=== PATIENT | female | born 1985 | race African-American/Black ===

== ENCOUNTER 2018-11-20 12:56 | Emergency (ER) | payer MEDICAID, OTHER ==
[~2018-11-20] VITALS: Ht 165.1 cm; Wt 82.6 kg
[2018-11-20 14:27] LABS: Urine Bacteria FEW /hpf (None Seen); Urine Blood Negative /uL (Negative); Urine Specific Gravity 1.015 (1.001-1.035); Urine WBC 31 /hpf (0 - 5)
[2018-11-20 14:33] LABS: Alanine Aminotransferase 16 U/L (13-56); Albumin 2.6 g/dL (3.4-5.0); Anion Gap 9 (5-15); Aspartate Aminotransferase 9 U/L (15-37); BUN/Creatinine Ratio 14.8; Basophils # (auto) 0 uL; Basophils % (auto) 0.4 % (0.0-2.0); Blood Urea Nitrogen 12 mg/dL (7-18); Calcium 8.3 mg/dL (8.5-10.1); Carbon Dioxide 23 mmol/L (21-32); Chloride 110 mmol/L (98-107); Eosinophils # (auto) 0.1 uL; GFR African American 106 mL/min; GFR Non-African American 88 mL/min; Glucose 103 mg/dL (74-106); Hematocrit 35.4 % (36.0-46.0); Hemoglobin 11.5 g/dL (12.2-16.2); Lymphocytes # (auto) 1.9 uL; Mean Corpuscular Hemoglobin 27.1 pg (28.0-32.0); Mean Corpuscular Hgb Conc. 32.6 g/dL (32.0-36.0); Mean Corpuscular Volume 83.1 fL (80.0-100.0); Monocytes # (auto) 0.5 uL; Monocytes % (auto) 7.9 % (0.0-12.0); Neutrophils # (auto) 3.4 uL; Neutrophils % (auto) 57.7 % (37.0-80.0); Nucleated Red Blood Cells % 0.1 %; Platelet Count (auto) 186 10^3/uL (140-450); Potassium 3.9 mmol/L (3.5-5.1); Red Blood Cells 4.26 10^6/uL (4.0-5.20); Red Cell Distribution Width 15.1 % (11.8-14.3); Sodium 142 mmol/L (136-145); White Blood Cell 5.9 10^3/uL (4.4-10.8)
[2018-11-20 14:35] LABS: Alkaline Phosphatase 52 U/L (45-117); Bilirubin, Total 0.4 mg/dL (0.2-1.0); Total Protein 6.6 g/dL (6.4-8.2)
[2018-11-20 15:36] VITALS: BP 118/60
== END 2018-11-20 16:26 | disposition home or self-care (01) ==
LOC: ER 13:08
DX: O26.852 Spotting complicating pregnancy, second trimester (principal); O20.0 Threatened abortion; O23.42 Unspecified infection of urinary tract in pregnancy, second trimester; O34.12 Maternal care for benign tumor of corpus uteri, second trimester; Z3A.19 19 weeks gestation of pregnancy
CPT/HCPCS: 36415; 76805; 80053; 81001; 84702; 85025

== ENCOUNTER 2019-06-06 14:34 | Emergency (ER) | payer MEDICAID ==
[~2019-06-06] VITALS: Ht 167.6 cm; Wt 90.7 kg
[2019-06-06 15:31] LABS: Eosinophils # (auto) 0 uL; Eosinophils % (auto) 0.3 % (0.0-7.0); Hemoglobin 11.6 g/dL (12.2-16.2); Lymphocytes # (auto) 3.2 uL; Monocytes # (auto) 0.6 uL; Neutrophils # (auto) 3.2 uL; Nucleated Red Blood Cells % 0.1 %; White Blood Cell 7.1 10^3/uL (4.4-10.8)
[2019-06-06 15:33] LABS: Basophils # (auto) 0 uL; Basophils % (auto) 0.5 % (0.0-2.0); Hematocrit 36.8 % (36.0-46.0); Lymphocytes % (auto) 45.1 % (10.0-50.0); Mean Corpuscular Hemoglobin 26.2 pg (28.0-32.0); Mean Corpuscular Hgb Conc. 31.5 g/dL (32.0-36.0); Mean Corpuscular Volume 83.4 fL (80.0-100.0); Monocytes % (auto) 9.1 % (0.0-12.0); Platelet Count (auto) 297 10^3/uL (140-450); Red Blood Cells 4.41 10^6/uL (4.0-5.20); Red Cell Distribution Width 15.7 % (11.8-14.3)
[2019-06-06 15:44] LABS: Urine Bacteria FEW /hpf (None Seen); Urine Blood 1+ /uL (Negative); Urine Mucus FEW (None Seen); Urine Specific Gravity 1.014 (1.001-1.035); Urine WBC 6 /hpf (0 - 5)
[2019-06-06 15:45] LABS: INR 1.14 (0.9-1.15); Partial Thromboplastin Time 27.3 sec (23.64-32.05)
[2019-06-06] MEDS: SODIUM CHLORIDE 0.9% 1,000 ML IV ONE ×2 (16:18→16:56)
[2019-06-06] MEDS: ONDANSETRON HCL 4 MG/2 ML VIAL ONE (16:47)
[2019-06-06] MEDS: MORPHINE SULF INJ 2 MG/ML SYRINGE 1ML ONE (16:47)
[2019-06-06] MEDS: MORPHINE SULF INJ 2 MG/ML SYRINGE 1ML IV ONE (16:47)
[2019-06-06] MEDS: ONDANSETRON HCL 4 MG/2 ML VIAL IV ONE (16:48)
[2019-06-06 17:45] LABS: Calcium 8.4 mg/dL (8.5-10.1); Potassium 3.9 mmol/L (3.5-5.1)
[2019-06-06 17:49] LABS: Bilirubin, Total 0.9 mg/dL (0.2-1.0); Total Protein 6.5 g/dL (6.4-8.2)
[2019-06-06] MEDS: MORPHINE SULFATE 4 MG/ML SYR/VIAL IV ONE (18:49)
[2019-06-06] MEDS: cefTRIAXone 1GM/50ML D5W 50 ML IV ONE (19:41)
[2019-06-06 20:36] VITALS: BP 160/111
== END 2019-06-06 20:39 | disposition home or self-care (01) ==
LOC: ER 14:34
DX: N83.202 Unspecified ovarian cyst, left side (principal); J01.00 Acute maxillary sinusitis, unspecified; J45.909 Unspecified asthma, uncomplicated
CPT/HCPCS: 36415; 76856; 80053; 81001; 83605; 84702; 85025; 85610; 85730; 96365; 96375; 96376; 99284; J0696; J2270; J2405; J7030

== ENCOUNTER 2019-06-10 08:22 | Inpatient (IN) | payer MEDICAID ==
[~2019-06-10] VITALS: Ht 167.6 cm; Wt 92.0 kg
[2019-06-10] MEDS ORDERED: SODIUM CHLORIDE 0.9% 500 ML IVB ONE (08:53)
[2019-06-10] MEDS ORDERED: ONDANSETRON HCL 4 MG/2 ML VIAL IV ONE (09:00)
[2019-06-10] MEDS ORDERED: MORPHINE SULFATE 4 MG/ML SYR/VIAL IV ONE (09:00)
[2019-06-10 09:24] LABS: Basophils # (auto) 0 uL; Basophils % (auto) 0.4 % (0.0-2.0); Eosinophils # (auto) 0 uL; Eosinophils % (auto) 0.6 % (0.0-7.0); Hemoglobin 11.4 g/dL (12.2-16.2); Lymphocytes # (auto) 2.7 uL; Lymphocytes % (auto) 44.1 % (10.0-50.0); Mean Corpuscular Hemoglobin 26.3 pg (28.0-32.0); Mean Corpuscular Hgb Conc. 31.5 g/dL (32.0-36.0); Mean Corpuscular Volume 83.4 fL (80.0-100.0); Monocytes # (auto) 0.7 uL; Monocytes % (auto) 10.8 % (0.0-12.0); Neutrophils # (auto) 2.7 uL; Neutrophils % (auto) 44.1 % (37.0-80.0); Nucleated Red Blood Cells % 0.2 %; Platelet Count (auto) 269 10^3/uL (140-450); Red Blood Cells 4.32 10^6/uL (4.0-5.20); Red Cell Distribution Width 15.4 % (11.8-14.3); White Blood Cell 6.1 10^3/uL (4.4-10.8)
[2019-06-10 09:41] LABS: Albumin 2.8 g/dL (3.4-5.0); Calcium 8.4 mg/dL (8.5-10.1); Potassium 3.9 mmol/L (3.5-5.1)
[2019-06-10 09:44] LABS: BUN/Creatinine Ratio 13.8; Bilirubin, Total 0.6 mg/dL (0.2-1.0)
[2019-06-10] MEDS ORDERED: KETOROLAC TROMETH 15 mg/ml 1ML VL IV ONE (11:00)
[2019-06-10] MEDS ORDERED: ALBUTEROL SULF 2.5 MG/0.5ML(0.5%) NEB SOLN NEB PRN (16:15)
[2019-06-10] MEDS ORDERED: IPRATROPIUM BROM 0.5 MG/2.5ML INH SOL NEB PRN (16:15)
[2019-06-10] MEDS ORDERED: ACETAMINOPHEN 500 MG TAB PO PRN (16:15)
[2019-06-10] MEDS: SODIUM CHLORIDE 0.9% 1,000 ML IV SCH (16:37)
[2019-06-10] MEDS: LEVOFLOXACIN 500MG 100 ML IV SCH (16:55)
--- NOTE | 2019-06-10 19:28 | NUR ---
Opening Shift Note Assumed care of patient, awake and alert. No S/S of distress/SOB or pain. Pt is deaf and mute. Using pen and paper to communicate. Instructed on POC and to call for assist as needed. Pt is currently in bed with the rails up x2 and the bed is locked in the lowest position. Call light explained and placed within reach. Will continue to monitor.
[2019-06-10] MEDS ORDERED: ALBUAER3 IN (19:39)
--- NOTE | 2019-06-10 19:40 | NUR ---
RECEIVED PT TO FLOOR FROM ER AT 181. A/O X 4. PT IS DEAF, USES SIGN LANGUAGE AND WRITTEN TO COMMUNICATE. FAMILY AT BEDSIDE, OBTAINED HISTORY FROM PT MOTHER. REPORT PASSED ON TO ONCOMING NURSE.
[2019-06-10] MEDS: MORPHINE SULF INJ 2 MG/ML SYRINGE 1ML IV PRN (20:56)
[2019-06-10 21:07] VITALS: BP 143/104
[2019-06-10 22:00] VITALS: BP 128/99
[2019-06-11 05:00] VITALS: BP 136/77
[2019-06-11] MEDS: SODIUM CHLORIDE 0.9% 1,000 ML IV SCH ×2 (05:17→18:51)
[2019-06-11 06:27] LABS: Basophils # (auto) 0 uL; Basophils % (auto) 0.5 % (0.0-2.0); Eosinophils # (auto) 0.1 uL; Eosinophils % (auto) 2.3 % (0.0-7.0); Hematocrit 34.8 % (36.0-46.0); Hemoglobin 10.9 g/dL (12.2-16.2); Lymphocytes # (auto) 2.4 uL; Lymphocytes % (auto) 40.1 % (10.0-50.0); Mean Corpuscular Hemoglobin 26.1 pg (28.0-32.0); Mean Corpuscular Hgb Conc. 31.4 g/dL (32.0-36.0); Mean Corpuscular Volume 83.3 fL (80.0-100.0); Monocytes # (auto) 0.7 uL; Monocytes % (auto) 11.3 % (0.0-12.0); Neutrophils # (auto) 2.7 uL; Neutrophils % (auto) 45.8 % (37.0-80.0); Nucleated Red Blood Cells % 0.2 %; Platelet Count (auto) 252 10^3/uL (140-450); Red Blood Cells 4.18 10^6/uL (4.0-5.20); Red Cell Distribution Width 15.4 % (11.8-14.3); White Blood Cell 5.9 10^3/uL (4.4-10.8)
[2019-06-11 06:44] LABS: Potassium 4.5 mmol/L (3.5-5.1)
[2019-06-11 06:52] LABS: Albumin 2.5 g/dL (3.4-5.0); BUN/Creatinine Ratio 13.2; Bilirubin, Total 0.8 mg/dL (0.2-1.0); Calcium 8.1 mg/dL (8.5-10.1); Total Protein 5.5 g/dL (6.4-8.2)
--- NOTE | 2019-06-11 06:54 | NUR ---
Respiratory note: ROUTINE PRN TX CHECK. HR 92, RR 15, POX 94% ON RA, BREATH SOUNDS ARE CLEAR/DIMINISHED. NO SOB OR DISTRESS NOTED. PT WAS NOTIFY TO HAVE RT PAGE FOR MN TX.
[2019-06-11 09:00] VITALS: BP 126/87
[2019-06-11] MEDS: FAMOTIDINE 20 MG TAB PO SCH (09:50)
[2019-06-11] MEDS: LEVOFLOXACIN 500MG 100 ML IV SCH (09:50)
[2019-06-11] MEDS: ONDANSETRON HCL 4 MG/2 ML VIAL IV PRN (12:12)
[2019-06-11] MEDS: MORPHINE SULF INJ 2 MG/ML SYRINGE 1ML IV PRN ×3 (12:13→21:15)
[2019-06-11 13:00] VITALS: BP 133/93
[2019-06-11] MEDS: ALBUTEROL SULF 2.5 MG/0.5ML(0.5%) NEB SOLN NEB SCH ×3 (13:55→22:18)
[2019-06-11] MEDS: IPRATROPIUM BROM 0.5 MG/2.5ML INH SOL NEB SCH ×3 (13:55→22:18)
[2019-06-11 14:01] LABS: Urine Bacteria FEW /hpf (None Seen); Urine Blood TRACE /uL (Negative); Urine Mucus FEW (None Seen); Urine WBC 5 /hpf (0 - 5)
[2019-06-11 14:07] LABS: Alcohol, Urine < 3.0 mg/dL (0-5); Amphetamine Screen, Urine NEGATIVE (NEGATIVE); Barbiturate Scree,Urine NEGATIVE (NEGATIVE); Benzodiazephine Screen, Urine NEGATIVE (NEGATIVE); Cocaine Screen, Urine NEGATIVE (NEGATIVE); Phencyclidine Screen, Urine NEGATIVE (NEGATIVE)
[2019-06-11 14:16] LABS: Cannabinoid Screen, Urine POSITIVE (NEGATIVE); Opiate Scree,Urine POSITIVE (NEGATIVE)
[2019-06-11 17:00] VITALS: BP 137/89
--- NOTE | 2019-06-11 19:40 | NUR ---
Opening Shift Note Assumed care of patient, awake and alert. No S/S of distress/SOB or pain. Instructed on POC and to call for assist PRN. Bed in lowest locked position, call light within reach, side rails up x2. Will continue to monitor for changes Q1hr and PRN.
[2019-06-11 22:42] VITALS: BP 137/92
--- NOTE | 2019-06-12 02:45 | NUR ---
IV insertion IV access obtained, via clean sterile technique by inserting 22 gauge catheter at right wrist after 3 attempt(s). IV secured properly. No trauma to site. Patient tolerated well. NOTE: Previous IV removed, catheter intact, pressure dressing applied.
[2019-06-12 05:22] VITALS: BP 130/83
[2019-06-12 05:25] LABS: Basophils # (auto) 0 uL; Eosinophils # (auto) 0.1 uL; Hemoglobin 10.8 g/dL (12.2-16.2); Lymphocytes # (auto) 2.2 uL; Mean Corpuscular Hgb Conc. 32.1 g/dL (32.0-36.0); Monocytes # (auto) 0.5 uL; Nucleated Red Blood Cells % 0.1 %; Red Blood Cells 4.07 10^6/uL (4.0-5.20)
[2019-06-12 05:27] LABS: Basophils % (auto) 0.6 % (0.0-2.0); Eosinophils % (auto) 1.6 % (0.0-7.0); Hematocrit 33.5 % (36.0-46.0); Lymphocytes % (auto) 43.4 % (10.0-50.0); Mean Corpuscular Hemoglobin 26.4 pg (28.0-32.0); Mean Corpuscular Volume 82.4 fL (80.0-100.0); Neutrophils # (auto) 2.3 uL; Neutrophils % (auto) 44.4 % (37.0-80.0); Platelet Count (auto) 268 10^3/uL (140-450); Red Cell Distribution Width 15.2 % (11.8-14.3); White Blood Cell 5.1 10^3/uL (4.4-10.8)
[2019-06-12 05:42] LABS: INR 1.19 (0.9-1.15); Partial Thromboplastin Time 27.3 sec (23.64-32.05)
[2019-06-12 05:47] LABS: Albumin 2.5 g/dL (3.4-5.0); Calcium 8.2 mg/dL (8.5-10.1); Potassium 4.1 mmol/L (3.5-5.1)
[2019-06-12 05:50] LABS: BUN/Creatinine Ratio 12.3; Bilirubin, Total 0.7 mg/dL (0.2-1.0); Total Protein 5.6 g/dL (6.4-8.2)
[2019-06-12] MEDS: ALBUTEROL SULF 2.5 MG/0.5ML(0.5%) NEB SOLN NEB SCH ×5 (07:36→22:50)
[2019-06-12] MEDS: IPRATROPIUM BROM 0.5 MG/2.5ML INH SOL NEB SCH ×5 (07:36→22:50)
[2019-06-12 09:00] VITALS: BP 140/101
[2019-06-12] MEDS: FAMOTIDINE 20 MG TAB PO SCH ×2 (10:00→14:28)
[2019-06-12] MEDS: LEVOFLOXACIN 500MG 100 ML IV SCH (10:05)
[2019-06-12] MEDS: SODIUM CHLORIDE 0.9% 1,000 ML IV SCH (10:05)
[2019-06-12] MEDS: MORPHINE SULF INJ 2 MG/ML SYRINGE 1ML IV PRN ×2 (10:06→17:03)
--- NOTE | 2019-06-12 11:00 | NUR ---
PT. REFUSED MN. TX. AT THIS TIME. PT. IS FEELING SICK AT THIS TIME. FAMILY AT THE BEDSIDE ASKING PT. IF SHE WANTS HER TX., PT. IS DEAF AND SIGNING WITH FAMILY MEMBER, NO SHE DID NOT WANT IT AT THIS TIME. PT. IS AWARE SHE MAY CALL IF NEEDED, WILL SEE PT. AT NEXT SCHEDULED TIME.
[2019-06-12] MEDS: ONDANSETRON HCL 4 MG/2 ML VIAL IV PRN (11:29)
[2019-06-12 12:30] VITALS: BP 146/103
--- NOTE | 2019-06-12 14:44 | NUR ---
DR REA SAW PATIENT. NOTIFIED PT BP HAS BEEN RUNNING HIGH. SPOKE WITH PATIENT AND FAMILY USING JEWEL WAXER MONITOR WITH LIVE JEWEL WAXER. MD WENT OVER PLAN OF CARE WITH PT AND FAMILY, INCLUDING MOTHER. Addendum: 06/12/19 at 1905 by MARTY DOHERTY RN FLUIDS HELD.
[2019-06-12] MEDS ORDERED: hydrALAZINE HCL 20 MG/ML VL IV PRN (16:15)
[2019-06-12] MEDS ORDERED: SODIUM CHLORIDE 0.9% 1,000 ML IV SCH (16:30)
[2019-06-12 16:53] VITALS: BP 152/79
[2019-06-12] MEDS: HYDROcodone-ACET 5/325MG TAB PO PRN (17:13)
[2019-06-12] MEDS ORDERED: LISINOPRIL 20 MG TAB PO ONE (19:15)
[2019-06-12 22:00] VITALS: BP 135/89
[2019-06-12] MEDS: METOPROLOL TARTRATE 50 MG TAB PO SCH (23:24)
[2019-06-13 05:00] VITALS: BP 138/86
[2019-06-13] MEDS: IPRATROPIUM BROM 0.5 MG/2.5ML INH SOL NEB SCH ×3 (06:18→22:00)
[2019-06-13] MEDS: ALBUTEROL SULF 2.5 MG/0.5ML(0.5%) NEB SOLN NEB SCH ×3 (06:18→22:00)
--- NOTE | 2019-06-13 06:18 | NUR ---
PT. REFUSED MN. TX. AT THIS AM. , NO RESP. DISTRESS OR SOB NOTED. BS. ARE CLEAR AND DIMINISHED BILAT. , HR=82,RR=16.ZM51=781% ON 2LPM NC., WILL SEE PT. AT NEXT SCHEDULED TIME.
[2019-06-13 07:04] LABS: Albumin 2.7 g/dL (3.4-5.0); BUN/Creatinine Ratio 10.2; Calcium 8.3 mg/dL (8.5-10.1); Potassium 4.3 mmol/L (3.5-5.1)
[2019-06-13 07:07] LABS: Total Protein 5.7 g/dL (6.4-8.2)
[2019-06-13 09:00] VITALS: BP 124/88
[2019-06-13] MEDS: LEVOFLOXACIN 500MG 100 ML IV SCH (09:19)
[2019-06-13] MEDS: METOPROLOL TARTRATE 50 MG TAB PO SCH ×2 (09:21→21:25)
[2019-06-13] MEDS: HYDROcodone-ACET 5/325MG TAB PO PRN ×2 (09:22→18:56)
[2019-06-13] MEDS: FAMOTIDINE 20 MG TAB PO SCH (09:23)
[2019-06-13] MEDS: LISINOPRIL 20 MG TAB PO SCH (09:23)
--- NOTE | 2019-06-13 10:07 | NUR ---
PT. REFUSED MN. TX. AT THIS TIME. FAMILY IN THE ROOM AT THIS TIME. PT. STATES SHE WILL TAKE TX. LATER. NO RESP. DISTRESS OR SOB NOTED AT THIS TIME. NO TX. , GIVEN.
--- NOTE | 2019-06-13 11:59 | NUR ---
Nutrition Assessment Notes Please refer to link for full assessment notes Est energy needs: 9587-8135 kcals (17/20 kcal/kgBW) Est protein needs: 54-68 gms/day (0.8-1.0 gm/kgAdjBW) Will continue to reassess prn Addendum: 06/13/19 at [address] Amended: Links added.
[2019-06-13 12:30] VITALS: BP 137/84
--- NOTE | 2019-06-13 13:04 | NUR ---
DR DIAZ SAW PATIENT AND DISCUSSED PLAN OF CARE WITH PATIENT USING LIVE CRYSTAL FLAT GRINDER ON MONITOR. REQUESTED STOOL SOFTENER. PT AWARE MD IS WAITING FOR SURGEON TO CONSULT. NOTIFIED DR DIAZ OF MALNUTRITION PER DIETARY.
[2019-06-13] MEDS ORDERED: LACTULOSE 20Gm/30ML SOLN PO ONE (13:30)
[2019-06-13] MEDS ORDERED: DOCUSATE SOD 100 MG CAP PO ONE (13:30)
[2019-06-13] MEDS: metroNIDAZOLE 500MG/100ML 100 ML IV SCH ×2 (14:21→21:24)
--- NOTE | 2019-06-13 14:35 | NUR ---
PT. REFUSED MN. TX. AGAIN. PT. STATES SHE DOES NOT NEED IT. NO RESP. DISTRESS OR SOB NOTED. HR=88,RR=16,SP02=95% ON RA. NO TX. GIVEN, WILL SEE PT. AT NEXT SCHEDULED TIME.
[2019-06-13 17:00] VITALS: BP 143/92
--- NOTE | 2019-06-13 18:25 | NUR ---
SURGICAL CONSULT DR AUGUSTINE SAW PATIENT. REPORTS NO SURGERY AT THIS TIME DUE TO THE RISKS, THAT HE WILL CONTINUE TO MONITOR PATIENT. DR LUBIN SAW PATIENT AND SHE REPORTS PT IS CLEAR FOR DISCHARGE FROM [facility] BUT TO HAVE PT FOLLOW UP WITH HER OUTPATIENT.
[2019-06-13] MEDS: ONDANSETRON HCL 4 MG/2 ML VIAL IV PRN (18:56)
--- NOTE | 2019-06-13 20:00 | NUR ---
PATIENT DEAF/MUTE FAMILY MEMBERS AT BEDSIDE TRANSLATING FOR RN, PATIENT REQUESTING FOR COUGH MEDICINE BECAUSE PAIN IS INCREASING ON HER ABDOMEN WHEN SHE STARTS COUGHING. MADE AWARE WILL PAGE HOSPITALIST. POC REVIEWED WITH PATIENT AND FAMILY.
[2019-06-13] MEDS: MORPHINE SULF INJ 2 MG/ML SYRINGE 1ML IV PRN (20:13)
--- NOTE | 2019-06-13 20:29 | NUR ---
paged hospitalist for cough med. awaiting callback.
[2019-06-13 22:04] VITALS: BP 133/87
[2019-06-13] MEDS ORDERED: guaiFENesin-DM 100/10mg/5ml SYR PO PRN (22:45)
[2019-06-13 23:52] LABS: Urine Bacteria NONE SEEN /hpf (None Seen); Urine Blood TRACE /uL (Negative); Urine Mucus FEW (None Seen); Urine Specific Gravity 1.014 (1.001-1.035); Urine WBC 6 /hpf (0 - 5)
[2019-06-14 00:12] LABS: Protein, Urine 174.6 mg/dL (0.0-11.9)
[2019-06-14] MEDS: MORPHINE SULF INJ 2 MG/ML SYRINGE 1ML IV PRN ×4 (00:17→21:23)
[2019-06-14] MEDS: ALBUTEROL SULF 2.5 MG/0.5ML(0.5%) NEB SOLN NEB SCH ×4 (00:26→14:43)
[2019-06-14] MEDS: IPRATROPIUM BROM 0.5 MG/2.5ML INH SOL NEB SCH ×4 (00:26→14:43)
[2019-06-14] MEDS: ONDANSETRON HCL 4 MG/2 ML VIAL IV PRN ×4 (01:09→21:21)
[2019-06-14] MEDS: HYDROcodone-ACET 5/325MG TAB PO PRN (01:09)
[2019-06-14 04:49] VITALS: BP 111/72
--- NOTE | 2019-06-14 05:46 | NUR ---
PATIENT VOMITED 100ML, AND IS STILL NAUSEATED, PAGED HOSPITALIST, AWAITING CALLBACK. INSTRUCTED PATIENT NOT TO DRINK OR EAT ANYTHING AT THIS TIME, KEPT HEAD ELEVATED TO PREVENT ASPIRATION.
[2019-06-14 05:53] LABS: Eosinophils # (auto) 0 uL; Eosinophils % (auto) 0.2 % (0.0-7.0); Hemoglobin 10.5 g/dL (12.2-16.2); Neutrophils # (auto) 3.3 uL; Nucleated Red Blood Cells % 0.2 %; White Blood Cell 5.6 10^3/uL (4.4-10.8)
[2019-06-14 05:54] LABS: Basophils # (auto) 0 uL; Basophils % (auto) 0.7 % (0.0-2.0); Hematocrit 33.3 % (36.0-46.0); Lymphocytes # (auto) 1.7 uL; Lymphocytes % (auto) 29.9 % (10.0-50.0); Mean Corpuscular Hemoglobin 25.9 pg (28.0-32.0); Mean Corpuscular Hgb Conc. 31.6 g/dL (32.0-36.0); Monocytes # (auto) 0.5 uL; Monocytes % (auto) 9.6 % (0.0-12.0); Neutrophils % (auto) 59.6 % (37.0-80.0); Platelet Count (auto) 247 10^3/uL (140-450); Red Blood Cells 4.06 10^6/uL (4.0-5.20); Red Cell Distribution Width 15.8 % (11.8-14.3)
[2019-06-14] MEDS: metroNIDAZOLE 500MG/100ML 100 ML IV SCH ×3 (06:14→21:21)
[2019-06-14] MEDS ORDERED: ONDANSETRON HCL 4 MG/2 ML VIAL IV ONE (06:15)
[2019-06-14 06:17] LABS: Albumin 2.4 g/dL (3.4-5.0); Calcium 8.1 mg/dL (8.5-10.1)
[2019-06-14 06:21] LABS: BUN/Creatinine Ratio 11.2; Bilirubin, Total 1.3 mg/dL (0.2-1.0); Total Protein 5.3 g/dL (6.4-8.2)
[2019-06-14 08:00] VITALS: BP 111/72
--- NOTE | 2019-06-14 08:00 | NUR ---
OPENING SHIFT NOTE ASSUMED CARE OF PATIENT AWAKE AND ALERT. NO S/S OF DISTRESS NOTED OR COMPLAINTS OF PAIN. PT UPDATED ON POC FOR THE DAY VIA PAPER AND PEN. ALL QUESTIONS ANSWERED. BED IS IN LOWEST, LOCKED POSITION, SIDE RAILS UP X2 AND CALL LIGHT WITHIN REACH. WILL CONTINUE TO MONITOR Q1H AND PRN.
[2019-06-14 09:00] VITALS: BP 135/83
[2019-06-14] MEDS: LEVOFLOXACIN 500MG 100 ML IV SCH (10:04)
[2019-06-14] MEDS: METOPROLOL TARTRATE 50 MG TAB PO SCH ×2 (10:04→21:23)
[2019-06-14] MEDS: LISINOPRIL 20 MG TAB PO SCH (10:05)
[2019-06-14] MEDS: FAMOTIDINE 20 MG TAB PO SCH (10:05)
[2019-06-14 13:00] VITALS: BP 123/84
--- NOTE | 2019-06-14 15:36 | NUR ---
ROUNDS Dr Donnelly at bedside for rounds, new orders received and followed through. Patient and mother at bedside updated on plan of care, mother translated by sign language, verbalized understanding.
[2019-06-14 15:48] LABS: Basophils # (auto) 0 uL; Lymphocytes # (auto) 2.1 uL; Monocytes # (auto) 0.6 uL; Nucleated Red Blood Cells % 0.2 %; White Blood Cell 5.6 10^3/uL (4.4-10.8)
[2019-06-14 15:50] LABS: Basophils % (auto) 0.9 % (0.0-2.0); Eosinophils # (auto) 0.1 uL; Hematocrit 33.8 % (36.0-46.0); Hemoglobin 11.1 g/dL (12.2-16.2); Lymphocytes % (auto) 37.4 % (10.0-50.0); Mean Corpuscular Hemoglobin 26.9 pg (28.0-32.0); Mean Corpuscular Hgb Conc. 32.8 g/dL (32.0-36.0); Monocytes % (auto) 9.9 % (0.0-12.0); Neutrophils # (auto) 2.8 uL; Neutrophils % (auto) 50.8 % (37.0-80.0); Platelet Count (auto) 273 10^3/uL (140-450); Red Blood Cells 4.13 10^6/uL (4.0-5.20); Red Cell Distribution Width 15.8 % (11.8-14.3)
[2019-06-14 16:05] LABS: Albumin 2.3 g/dL (3.4-5.0); Calcium 8.1 mg/dL (8.5-10.1); Potassium 4.4 mmol/L (3.5-5.1)
[2019-06-14 16:08] LABS: BUN/Creatinine Ratio 11.9; Total Protein 5.1 g/dL (6.4-8.2)
--- NOTE | 2019-06-14 16:26 | NUR ---
I received a page from Nurse Gomez letting me know that there is a new order to transfer to higher level of care for high risk gallbladder surgery. I requested that nurse Gomez fax the transfer order along with clinical information to [facility] (phone [phone] option 3----fax number [phone]). I called [facility] Director Wholesale Hayley Shipleycon [phone] and left a message letting her know that there was a transfer order on this patient-asking for authorization for facility as well as transportation. I let nurse Gomez know that when she faxes packet to [facility] they will call her back asking for cell phone number-Patricia to get phone number from Dr. Donnelly.
--- NOTE | 2019-06-14 16:32 | NUR ---
FAX FAXED INFORMATION TO [facility] PER HISTOLOGICAL ILLUSTRATOR'S REQUEST
[2019-06-14 16:43] VITALS: BP 129/76
--- NOTE | 2019-06-14 16:46 | NUR ---
I received a call from [facility] Medical Education Specialist Hayley Seo letting me know that the authorization for [facility] is [id number]. She said we can also reach out to [facility], [facility], [facility], [facility] and [facility]. Per Hayley she will not provide [facility] authorization number until she knows the accepting facility.
--- NOTE | 2019-06-14 16:50 | NUR ---
I called [facility] [phone] and left message with oracle data warehouse developer asking about their bed availability.
[2019-06-14] MEDS ORDERED: NITROGLYCERIN 0.4 MG SL TAB SL PRN ×2 (17:00)
[2019-06-14] MEDS ORDERED: MORPHINE SULF INJ 2 MG/ML SYRINGE 1ML IV PRN ×2 (17:00)
[2019-06-14] MEDS ORDERED: FUROSEMIDE 20 MG/2 ML VIAL IV ONE (17:30)
--- NOTE | 2019-06-14 18:36 | NUR ---
[facility] RECEIVED CALL FROM [facility] REGARDING PATIENT'S TRANSFER STATUS. FACILITY IS NOT CURRENTLY ACCEPTING MEDICAL TRANSFER CASES BUT WILL PUT HER UNDER SURGICAL SERVICES. PROVIDED THEM WITH THE PHONE NUMBER AND NAME OF THE [facility] DRY CLEANER AND THE AUTH NUMBER. THEY WILL CALL BACK AND LET US KNOW WHEN A BED IS AVAILABLE.
--- NOTE | 2019-06-14 21:05 | NUR ---
Received patient from Isabel KERNS Patient is in bed complaining of pain. Pain medications are due at 21:22. Patient is aware. Call light is within reach, will continue to monitor.
--- NOTE | 2019-06-14 21:10 | NUR ---
Endorsed care to Lorraine KERNS. Patient is resting in bed. Fall and safety precautions in place. Call light within reach.
[2019-06-14] MEDS: SODIUM CHLOR 0.9% PF (SALINE LOCK) 10ML VIAL/SYR IV SCH (21:23)
[2019-06-14 22:00] VITALS: BP 126/61
--- NOTE | 2019-06-14 22:25 | NUR ---
Dr. Campbell at bedside. He wants to do a MRCP to further assess the gallbladder and says it will happen on sunday. Patient is aware, all questions answered. New orders received for CMP in the am. Will carry out and continue to monitor the patient.
--- NOTE | 2019-06-14 22:35 | NUR ---
Called patient's mother, password provided, and updated her on current plan of care. All questions and concerns answered. She stated she will be here tomorrow, she wants to speak with Dr. Campbell.
--- NOTE | 2019-06-14 22:41 | NUR ---
NEW PASSWORD New password is [id number], the patient's mother changed it. The patient is aware and expressed understanding.
--- NOTE | 2019-06-14 23:45 | NUR ---
Episode of nausea, patient vomited 40mL of clear liquid. No nausea medications due. Patient stated she felt better after getting sick.
[2019-06-15] MEDS: ONDANSETRON HCL 4 MG/2 ML VIAL IV PRN ×4 (01:21→19:59)
[2019-06-15] MEDS: MORPHINE SULF INJ 2 MG/ML SYRINGE 1ML IV PRN ×4 (01:21→19:58)
[2019-06-15 05:00] VITALS: BP 130/68
[2019-06-15 05:45] LABS: Albumin 2.3 g/dL (3.4-5.0); Calcium 7.9 mg/dL (8.5-10.1); Potassium 3.5 mmol/L (3.5-5.1)
[2019-06-15 05:49] LABS: BUN/Creatinine Ratio 10.7; Bilirubin, Total 0.8 mg/dL (0.2-1.0); Total Protein 5.1 g/dL (6.4-8.2)
[2019-06-15] MEDS: SODIUM CHLOR 0.9% PF (SALINE LOCK) 10ML VIAL/SYR IV SCH ×3 (06:03→22:18)
[2019-06-15] MEDS: metroNIDAZOLE 500MG/100ML 100 ML IV SCH ×3 (06:03→22:18)
--- NOTE | 2019-06-15 07:30 | NUR ---
Opening Shift Note Assumed care of patient, awake and alert. PT IS DEAF/MUTE. No S/S of distress/SOB or pain. Instructed on POC and to call for assist PRN, will continue to monitor for changes Q1hr and PRN. USED VIDEO ADJUSTMENT CLERK AT BEDSIDE.
[2019-06-15 08:00] VITALS: BP 132/90
[2019-06-15] MEDS: LEVOFLOXACIN 500MG 100 ML IV SCH (09:35)
[2019-06-15] MEDS: METOPROLOL TARTRATE 50 MG TAB PO SCH (09:35)
[2019-06-15] MEDS: FAMOTIDINE 20 MG TAB PO SCH (09:35)
[2019-06-15] MEDS: LISINOPRIL 20 MG TAB PO SCH ×2 (09:36→10:00)
[2019-06-15] MEDS ORDERED: ENOXAPARIN SOD 40 MG/0.4 ML SYRINGE SC ONE (10:15)
[2019-06-15] MEDS ORDERED: FAMOTIDINE (10MG/ML) 2ML VL IV ONE (10:15)
[2019-06-15 10:58] LABS: Albumin 2.6 g/dL (3.4-5.0); Calcium 8.3 mg/dL (8.5-10.1); Potassium 3.7 mmol/L (3.5-5.1)
[2019-06-15 11:02] LABS: BUN/Creatinine Ratio 9.9; Bilirubin, Total 0.8 mg/dL (0.2-1.0); Total Protein 5.6 g/dL (6.4-8.2)
--- NOTE | 2019-06-15 11:30 | NUR ---
PT PROVIDED WITH INCENTIVE SPIROMETER AND DEMONSTRATED/EXPLAINED PROPER USAGE USING THE VIDEO REVERBERATORY SKIMMER. PT RETURNED DEMONSTRATION. VERBALIZED UNDERSTANDING. Addendum: 06/15/19 at 1838 by Adali Hastings RN PT WAS ALSO ENCOURAGED TO GET OUT OF BED AND TO AMBULATE.
[2019-06-15 12:00] VITALS: BP 134/83
--- NOTE | 2019-06-15 15:00 | NUR ---
FAMILY AT BEDSIDE.
--- NOTE | 2019-06-15 16:00 | NUR ---
PT AMBULATED AROUND THE UNIT WITH FAMILY AT BEDSIDE. GAIT STEADY. TOLERATED WELL.
--- NOTE | 2019-06-15 16:55 | NUR ---
IV removal IV ON LEFT WRIST DC'd with clean sterile technique, catheter fully intact. Pressure dressing applied to site. Patient tolerated well. NOTE:
[2019-06-15 16:56] VITALS: BP 147/91
--- NOTE | 2019-06-15 17:03 | NUR ---
IV insertion IV access obtained, via clean sterile technique by inserting 20 gauge catheter at RIGHT FA after 1 attempt(s). IV secured properly. No trauma to site. Patient tolerated well. NOTE:
--- NOTE | 2019-06-15 18:39 | NUR ---
CLOSING NOTES PT RESTING IN BED. FAMILY AT BEDSIDE. PT HAD SEVERAL EPISODES OF VOMITING TODAY AND WAS GIVEN ZOFRAN WHICH HELPED CONTROL IT. PT HASN'T REPORTED ANY EPISODE OF VOMITING AT THIS TIME.
[2019-06-15] MEDS ORDERED: PPN PER PHARMACY 0 ML IV SCH (19:00)
[2019-06-15] MEDS ORDERED: guaiFENesin-DM 100/10mg/5ml SYR PO ONE (19:00)
[2019-06-15] MEDS ORDERED: guaiFENesin-DM 100/10mg/5ml SYR PO PRN (19:00)
[2019-06-15] MEDS ORDERED: FUROSEMIDE 40 MG/4 ML VIAL IV ONE (19:00)
[2019-06-15] MEDS ORDERED: DEXTROSE (50%) 50ML SYRG IV SCH (19:30)
--- NOTE | 2019-06-15 19:35 | NUR ---
Opening Shift Note Assumed care of patient, awake and alert x4. No S/S of distress/SOB or pain. Call light is within reach, side rails up x2, bed is in lowest position. Instructed on POC and to call for assist PRN, will continue to monitor for changes Q1hr and PRN.
[2019-06-15] MEDS: AMINO ACID INFUSION IN D5W 1,000 ML IV NR (19:57)
[2019-06-15 22:00] VITALS: BP 149/99
[2019-06-15] MEDS: InsuLIN REG 1unit/0.01ml Soln (100units/ml) SC SCH (23:38)
[2019-06-15] MEDS: ACCU-CHEK COMFORT CURVE STRIP VI SCH (23:39)
[2019-06-16] MEDS: ONDANSETRON HCL 4 MG/2 ML VIAL IV PRN ×2 (02:15→08:28)
[2019-06-16 05:42] VITALS: BP 138/93
[2019-06-16] MEDS: InsuLIN REG 1unit/0.01ml Soln (100units/ml) SC SCH ×3 (06:00→18:00)
[2019-06-16] MEDS: SODIUM CHLOR 0.9% PF (SALINE LOCK) 10ML VIAL/SYR IV SCH ×3 (06:02→22:22)
[2019-06-16] MEDS: metroNIDAZOLE 500MG/100ML 100 ML IV SCH ×3 (06:02→22:22)
[2019-06-16] MEDS: ACCU-CHEK COMFORT CURVE STRIP VI SCH ×4 (06:03→23:43)
[2019-06-16 06:05] LABS: Basophils # (auto) 0 uL; Eosinophils # (auto) 0.1 uL; Hemoglobin 10.9 g/dL (12.2-16.2); Monocytes # (auto) 0.7 uL; Nucleated Red Blood Cells % 0.1 %
[2019-06-16 06:08] LABS: Basophils % (auto) 0.7 % (0.0-2.0); Eosinophils % (auto) 1.8 % (0.0-7.0); Hematocrit 33.5 % (36.0-46.0); Lymphocytes # (auto) 1.7 uL; Lymphocytes % (auto) 37.2 % (10.0-50.0); Mean Corpuscular Hemoglobin 26.2 pg (28.0-32.0); Mean Corpuscular Hgb Conc. 32.7 g/dL (32.0-36.0); Mean Corpuscular Volume 80.2 fL (80.0-100.0); Monocytes % (auto) 14.5 % (0.0-12.0); Neutrophils # (auto) 2.1 uL; Neutrophils % (auto) 45.8 % (37.0-80.0); Platelet Count (auto) 212 10^3/uL (140-450); Red Blood Cells 4.18 10^6/uL (4.0-5.20); Red Cell Distribution Width 16.1 % (11.8-14.3); White Blood Cell 4.6 10^3/uL (4.4-10.8)
[2019-06-16 06:29] LABS: Potassium 3.4 mmol/L (3.5-5.1)
[2019-06-16 06:38] LABS: Albumin 2.5 g/dL (3.4-5.0); BUN/Creatinine Ratio 9.1; Bilirubin, Total 0.9 mg/dL (0.2-1.0); Calcium 8.1 mg/dL (8.5-10.1); Magnesium 1.5 mg/dL (1.6-2.6); Phosphorus 4.1 mg/dL (2.5-4.90); Pre Albumin 14.1 mg/dL (20.0-40.0); Total Protein 5.3 g/dL (6.4-8.2)
--- NOTE | 2019-06-16 07:30 | NUR ---
OPENING SHIFT NOTE: Received report from NOC RNDionna. Assumed care of patient. Patient sleeping quietly in bed, no signs or symptoms of pain at this time. Bed in lowest position, rails x2 up and call light within reach. Updated on plan of care. Will continue to monitor.
[2019-06-16 08:00] VITALS: BP 138/91
[2019-06-16] MEDS: MORPHINE SULF INJ 2 MG/ML SYRINGE 1ML IV PRN ×2 (08:29→22:16)
[2019-06-16] MEDS: LISINOPRIL 20 MG TAB PO SCH (09:55)
[2019-06-16] MEDS: LEVOFLOXACIN 500MG 100 ML IV SCH (09:55)
[2019-06-16] MEDS ORDERED: ENOXAPARIN SOD 40 MG/0.4 ML SYRINGE SC SCH (10:00)
[2019-06-16] MEDS ORDERED: FAMOTIDINE (10MG/ML) 2ML VL IV SCH (10:00)
--- NOTE | 2019-06-16 10:58 | NUR ---
MRCP/MRI: Patient IV saline flushed. Patient taken for MRCP/MRI via wheelchair.
[2019-06-16] MEDS ORDERED: PANTOPRAZOLE 40 MG/10 ML VIAL INJ IV ONE (11:30)
[2019-06-16] MEDS: POTASSIUM CHL 20MEQ/100ML 100 ML IV SCH ×2 (11:45→12:55)
--- NOTE | 2019-06-16 11:51 | NUR ---
Nutrition Consult and Follow-up Notes Wt.: 94.1 kg as of yesterday. Pt's deaf mute, communicate via pen and paper, denies discomfort except for nausea and mild abdominal pain during rounds earlier. Pt's currently NPO with Clinimix @ 42 ml/hr providing 255 kcal, 42.5 gms pro and 85 NPCs. Pt with inadequate PN support d/t low initiation rate delivery of diluted formula aeb current PN infusion meets 13% to 16% of est caloric needs and 51% to 60% of est protein needs. Discussed importance/benefits of PN support while remains NPO r/t current medical condition and she acknowledged with understanding. Noted pt's to receive tonight TPN @ 53 ml/hr to provide 748 kcal, 50 gms pro, 508 NPCs and 13% Fat with active GI and Surgical consult. Est. Needs : 9420-4397 kcals (17-20 kcal/kgBW), 71-83 gms pro (1.2-1.4 gms/kgIBW: 59 kg d/t mod hypoalbuminemia, elev. Cr level). Will continue to monitor pertinent labs and reassess nutrient need prn Labs: Gluc 113 H, Cl 108 H, K 3.4 L, Ca 8.1 L, Cr 1.32 H, Mg 1.5 L, AST 95 H, ALT 181 H, Tpro 5.3 L, Alb 2.5 L, Prealb 14.1 L, Trig 88 wnl Skin: James scale 20, low risk, skin intact per mechanic general operational test. GI: Pt had 1 BM this morning per mechanic general operational test. PES: Increased nutrient needs r/t altered GI functions aeb Intractable abdominal pain, Cholelithiasis, mos hypoalbuminemia, NPO with PN support Altered nutrition related lab values r/t current/chronic medical condition aeb hyperglycemia, hyperchloremia, hypokalemia, elev. Cr, LFTs, mod hypoalbuminemia. Obesity r/t food intake more than body requirement aeb 161% IBW and BMI of 33.8 kg/m2 and increased body adiposity Will continue to monitor NPO status, PN tolerance, skin status, pertinent labs and weight trend. F/u in 2 to 3 days. Rec.: 1.) If still NPO with PN support, consider gradual increase on calories and protein to meet at least 75% of est nutrient needs. 2.) Advance gradually to oral diet when medically appropriate. 3.) Refer pt to CDE/RD for further nutrition education and weight monitoring upon discharge. 4.) Continue current plan of care. Thank you for this consult.
[2019-06-16 12:00] VITALS: BP 140/95
[2019-06-16] MEDS: MAGNESIUM SULFATE 1GM/100ML 100 ML IV SCH ×4 (14:00→21:21)
[2019-06-16] MEDS ORDERED: POTASSIUM EFFERVESENT TAB 25 MEQ PO ONE (15:15)
[2019-06-16] MEDS ORDERED: POTASSIUM CHL 20 Meq TABLET PO ONE (15:15)
[2019-06-16 17:00] VITALS: BP 144/92
--- NOTE | 2019-06-16 19:30 | NUR ---
Opening Shift Note Assumed care of patient, awake and alert. No S/S of distress/SOB or pain. Instructed on POC and to call for assist PRN, will continue to monitor for changes Q1hr and PRN. Communicated with patient via paper and pen - patient is deaf.
[2019-06-16] MEDS: AMINO ACID INFUSION IN D5W 1,000 ML IV NR (19:49)
[2019-06-16] MEDS ORDERED: PPN PER PHARMACY IV NR ×7 (20:00)
[2019-06-16 21:56] VITALS: BP 138/92
[2019-06-17 04:50] VITALS: BP 134/90
[2019-06-17] MEDS: InsuLIN REG 1unit/0.01ml Soln (100units/ml) SC SCH ×4 (06:00→17:55)
[2019-06-17] MEDS: SODIUM CHLOR 0.9% PF (SALINE LOCK) 10ML VIAL/SYR IV SCH ×3 (06:00→21:53)
[2019-06-17] MEDS: ACCU-CHEK COMFORT CURVE STRIP VI SCH ×4 (06:00→22:15)
[2019-06-17] MEDS: metroNIDAZOLE 500MG/100ML 100 ML IV SCH ×3 (06:01→21:53)
[2019-06-17] MEDS: MORPHINE SULF INJ 2 MG/ML SYRINGE 1ML IV PRN ×3 (06:13→20:03)
--- NOTE | 2019-06-17 07:15 | NUR ---
OPENING SHIFT NOTES Assumed care of patient from night guard RN. Patient is alert and oriented x4, no signs of distress noted. Patient is deaf and aphagic. Plan of care was written down and read by the patient, patient nodded head yes in understanding, all questions answered. Bed is locked, in the lowest position, side rails up x2 and call light is in reach. Patient was encouraged to call for assistance when needed.
[2019-06-17 09:00] VITALS: BP 131/92
[2019-06-17 09:19] LABS: Albumin 2.4 g/dL (3.4-5.0); Calcium 8.1 mg/dL (8.5-10.1); Potassium 3.7 mmol/L (3.5-5.1)
[2019-06-17 09:22] LABS: BUN/Creatinine Ratio 7.5; Bilirubin, Total 0.6 mg/dL (0.2-1.0); Phosphorus 3.3 mg/dL (2.5-4.90); Total Protein 5.4 g/dL (6.4-8.2)
[2019-06-17] MEDS: PANTOPRAZOLE 40 MG/10 ML VIAL INJ IV SCH (10:10)
[2019-06-17] MEDS: LEVOFLOXACIN 500MG 100 ML IV SCH (10:11)
[2019-06-17] MEDS: LISINOPRIL 20 MG TAB PO SCH (10:11)
[2019-06-17] MEDS: ONDANSETRON HCL 4 MG/2 ML VIAL IV PRN ×2 (10:19→20:03)
--- NOTE | 2019-06-17 12:45 | NUR ---
HOSPITALIST AT BEDSIDE Dr. Vieira at bedside, plan of care discussed with the patient and family, new orders received and carried out.
[2019-06-17 13:00] VITALS: BP 137/101
--- NOTE | 2019-06-17 13:30 | NUR ---
Dr. Levy at bedside. Updated on patient status, plan of care was discussed with patient and family, verbalized understanding. New orders received.
--- NOTE | 2019-06-17 15:16 | NUR ---
PAGED DR DIAZ to update on patient status, new orders received and carried out.
[2019-06-17 16:45] VITALS: BP 137/88
--- NOTE | 2019-06-17 19:02 | NUR ---
CLOSING SHIFT NOTES Care endorsed to assistant shift supervisor RN, no signs of distress noted.
--- NOTE | 2019-06-17 19:30 | NUR ---
Opening Shift Note Assumed care of patient, awake and alert. No S/S of distress/SOB or pain. Family at bedside. Instructed on POC and to call for assist PRN, will continue to monitor for changes Q1hr and PRN.
[2019-06-17 20:00] VITALS: BP 127/80
[2019-06-17] MEDS ORDERED: TPN PER PHARMACY IV NR ×9 (20:00)
[2019-06-17 22:00] VITALS: BP 127/80
[2019-06-18] MEDS: MORPHINE SULF INJ 2 MG/ML SYRINGE 1ML IV PRN ×4 (00:09→23:29)
[2019-06-18 05:48] LABS: Basophils # (auto) 0 uL; Basophils % (auto) 0.6 % (0.0-2.0); Eosinophils # (auto) 0.1 uL; Eosinophils % (auto) 2.6 % (0.0-7.0); Lymphocytes # (auto) 2.5 uL; Lymphocytes % (auto) 48.3 % (10.0-50.0); Mean Corpuscular Hemoglobin 25.8 pg (28.0-32.0); Mean Corpuscular Hgb Conc. 32.3 g/dL (32.0-36.0); Mean Corpuscular Volume 80.1 fL (80.0-100.0); Monocytes # (auto) 0.8 uL; Monocytes % (auto) 15.2 % (0.0-12.0); Neutrophils # (auto) 1.7 uL; Neutrophils % (auto) 33.3 % (37.0-80.0); Nucleated Red Blood Cells % 0.1 %; Platelet Count (auto) 217 10^3/uL (140-450); Red Blood Cells 4.24 10^6/uL (4.0-5.20); White Blood Cell 5.2 10^3/uL (4.4-10.8)
[2019-06-18 05:53] VITALS: BP 130/93
[2019-06-18] MEDS: metroNIDAZOLE 500MG/100ML 100 ML IV SCH ×3 (06:00→21:27)
[2019-06-18] MEDS: InsuLIN REG 1unit/0.01ml Soln (100units/ml) SC SCH ×2 (06:00)
[2019-06-18] MEDS: ACCU-CHEK COMFORT CURVE STRIP VI SCH (06:00)
[2019-06-18] MEDS: SODIUM CHLOR 0.9% PF (SALINE LOCK) 10ML VIAL/SYR IV SCH ×3 (06:00→21:28)
--- NOTE | 2019-06-18 07:30 | NUR ---
OPENING SHIFT NOTE: Received report from NOC RNNavid. Assumed care of patient. Patient resting comfortably in bed. No signs or symptoms of pain. Patient with VRI at bedside, but prefers to write to communicated due to deafness. Bed in lowest position, rails x2 up and call light within reach. Updated on plan of care. Patient NPO for EGD with Dr Levy today. Will continue to monitor.
[2019-06-18] MEDS ORDERED: SODIUM CHLORIDE LOCK 10 ML ONE (08:34)
[2019-06-18] MEDS ORDERED: LIDOCAINE VISCOUS 2% 15ML UD ONE (08:34)
[2019-06-18] MEDS ORDERED: diphenhdrAMINE HCL 50 MG/1 ML VL ONE (08:35)
[2019-06-18 09:00] VITALS: BP 134/82
[2019-06-18] MEDS: PANTOPRAZOLE 40 MG/10 ML VIAL INJ IV SCH (09:35)
[2019-06-18] MEDS: ONDANSETRON HCL 4 MG/2 ML VIAL IV PRN ×3 (09:35→23:29)
[2019-06-18] MEDS: LEVOFLOXACIN 500MG 100 ML IV SCH (09:36)
[2019-06-18] MEDS: LISINOPRIL 20 MG TAB PO SCH (10:00)
[2019-06-18] MEDS ORDERED: LACTULOSE 20Gm/30ML SOLN PO ONE (10:45)
--- NOTE | 2019-06-18 11:47 | NUR ---
assessment Patient is a 34 year old Deaf female who is alert and oriented. Patient reads lips. Patients cognitive abilities are intact. Prior to admission patient lived home with family and functioned with assistance. Per patient she will return home to her prior living arrangements post discharge and family will transport her home. Patient has no need for DME. Patient informed me she has no safety concerns regarding returning home on discharge. Patient informed me the father of her child helps her in the home. Patients mother Tino Sanchez is at bedside. Tino is upset with some nursing on mini shifter and wants to make a complaint. I will notify Juana supercharger repair supervisor for today. Tino is stating that the translation machine that is in patients room does not always work. i will also notify Juana of her concerns. At this time patient has no post discharge needs identified. I informed patient she has a right to speak to a social services aide regarding all care. I informed patient she has a right to participate in any and all discharge planning. Patient does not have a POA and advanced directive. I have offered patient information on POA and advanced directives. I informed the patient the advantages and benefits of having an Advanced Directive. Patient verbalized understanding and agreed to discharge plan. Addendum: 06/18/19 at 1154 by Precious MORENO Amended: Links added.
--- NOTE | 2019-06-18 12:05 | NUR ---
PREOP: Patient taken to preop via bed with mother at bedside. SBAR given to SAUMYA Reynoso.
[2019-06-18] MEDS: fentaNYL CITRATE 100 MCG/2 ML VL ONE ×2 (12:18→12:21)
[2019-06-18] MEDS: MIDAZOLAM HCL 5 MG/ML-1ML VIAL ONE ×2 (12:18→12:21)
--- NOTE | 2019-06-18 12:40 | NUR ---
GI RECOVERY: Received SBAR from SAUMYA Carlisle. Patient returned to room via bed. Patient denies pain. Will continue to monitor.
[2019-06-18 13:00] VITALS: BP 139/82
[2019-06-18 17:00] VITALS: BP 126/82
--- NOTE | 2019-06-18 18:27 | NUR ---
IV ACCESS: Removed IV to left wrist due to pain when flushing IV. Catheter removed intact and pressure dressing applied. Patient still with IV to right forearm.
--- NOTE | 2019-06-18 19:27 | NUR ---
CLOSING SHIFT NOTE: Report given to NOC Fracisco KERNS. Endorsed care of patient.
--- NOTE | 2019-06-18 19:30 | NUR ---
Opening Shift Note Assumed care of patient. Patient is awake and alert with family at bedside. No S/S of distress/SOB. Instructed on POC and to call for assist PRN, will continue to monitor for changes Q1hr and PRN. Bed locked in lowest position and bed rails up x2. Call light within reach. Patient communicates with writing on paper. Able to comprehend and understand concepts.
[2019-06-18 22:00] VITALS: BP 131/77
[2019-06-19] MEDS: ONDANSETRON HCL 4 MG/2 ML VIAL IV PRN ×3 (05:08→23:49)
[2019-06-19] MEDS: MORPHINE SULF INJ 2 MG/ML SYRINGE 1ML IV PRN ×4 (05:08→23:49)
[2019-06-19 05:15] VITALS: BP 137/84
[2019-06-19] MEDS: SODIUM CHLOR 0.9% PF (SALINE LOCK) 10ML VIAL/SYR IV SCH ×3 (06:00→23:21)
[2019-06-19] MEDS: metroNIDAZOLE 500MG/100ML 100 ML IV SCH ×3 (06:32→23:21)
[2019-06-19 06:40] LABS: Basophils # (auto) 0 uL; Eosinophils # (auto) 0.1 uL; Lymphocytes # (auto) 1.9 uL; Neutrophils # (auto) 1.7 uL; Nucleated Red Blood Cells % 0.1 %
[2019-06-19 06:42] LABS: Basophils % (auto) 0.6 % (0.0-2.0); Eosinophils % (auto) 1.8 % (0.0-7.0); Hematocrit 33.9 % (36.0-46.0); Lymphocytes % (auto) 44.8 % (10.0-50.0); Mean Corpuscular Hgb Conc. 32.4 g/dL (32.0-36.0); Mean Corpuscular Volume 80.3 fL (80.0-100.0); Monocytes # (auto) 0.6 uL; Monocytes % (auto) 13.6 % (0.0-12.0); Neutrophils % (auto) 39.2 % (37.0-80.0); Platelet Count (auto) 195 10^3/uL (140-450); Red Blood Cells 4.22 10^6/uL (4.0-5.20); Red Cell Distribution Width 16.1 % (11.8-14.3); White Blood Cell 4.2 10^3/uL (4.4-10.8)
[2019-06-19 06:58] LABS: Albumin 2.5 g/dL (3.4-5.0); Calcium 8.2 mg/dL (8.5-10.1); Potassium 3.8 mmol/L (3.5-5.1)
[2019-06-19 07:01] LABS: BUN/Creatinine Ratio 6.4; Bilirubin, Total 0.5 mg/dL (0.2-1.0); Total Protein 5.4 g/dL (6.4-8.2)
--- NOTE | 2019-06-19 07:22 | NUR ---
Opening Shift Note Assumed care of patient, patient is resting with eyes closed. No S/S of distress/SOB, no pain noted at this time. Respirations are even and unlabored on RA. Bed locked in lowest position, side rails upx2, call light within reach. Will continue to monitor for changes Q1hr and PRN.
[2019-06-19 09:13] VITALS: BP 124/79
[2019-06-19] MEDS: LEVOFLOXACIN 500MG 100 ML IV SCH (10:00)
[2019-06-19] MEDS: PANTOPRAZOLE 40 MG/10 ML VIAL INJ IV SCH (10:06)
[2019-06-19] MEDS: LISINOPRIL 20 MG TAB PO SCH (10:06)
--- NOTE | 2019-06-19 12:26 | NUR ---
PATIENT ROUNDS PATIENT IS SITTING UP IN BED, NO S/S OF DISTRESS. FAMILY AT BEDSIDE. NO CURRENT NEEDS AT THIS TIME. WILL CONTINUE TO MONITOR FOR CHANGES.
[2019-06-19 13:00] VITALS: BP 125/69
--- NOTE | 2019-06-19 15:12 | NUR ---
IV removal and insertion IV DC'd with clean sterile technique, catheter fully intact. Pressure dressing applied to site. Patient tolerated well. NOTE: [Right forearm painful and swollen] IV access obtained, via clean sterile technique by inserting 22 gauge catheter at right forearm after 2 attempt(s). IV secured properly. No trauma to site. Patient tolerated well.
--- NOTE | 2019-06-19 15:38 | NUR ---
Nutrition Follow-up Notes Wt.: 91.5 kg as of yesterday. Pt's asleep, no immediate family member at bedside during rounds this morning. PT's s/p EGD with Biopsy yesterday, off from PN support (06/17/19), currently on Full Liquid diet with good PO intake aeb 80% ave. consumed meals (x4) since yesterday. Est. Needs : 3425-4049 kcals (17-20 kcal/kgBW), 71-83 gms pro (1.2-1.4 gms/kgIBW: 59 kg d/t mod hypoalbuminemia, elev. Cr level). Will continue to monitor pertinent labs and reassess nutrient need prn Labs: Ca 8.2 L, Cr 1.41 H, ALT 68 H, Tpro 5.4 L, Alb 2.5 L; Prealb 14.1 L, Trig 88 wnl Skin: James scale 22, low risk, skin intact per running instructor. GI: Pt had 5x BM this morning per running instructor. Noted pt's on Lactulose PES: Resolved: Increased nutrient needs r/t altered GI functions aeb Intractable abdominal pain, Cholelithiasis, mos hypoalbuminemia, NPO with PN support Altered nutrition related lab values r/t current/chronic medical condition aeb hyperglycemia, hyperchloremia, hypokalemia, elev. Cr, LFTs, mod hypoalbuminemia. Obesity r/t food intake more than body requirement aeb 161% IBW and BMI of 33.8 kg/m2 and increased body adiposity Will continue to monitor PO intake, skin status, pertinent labs and weight trend. F/u in 3 to 5 days. Rec.: 1.) Advance gradually to oral diet when medically appropriate. 2.) If Albumin continues trending down, consider Prostat 1 pkt BID. 3.) Continue close supervision with meals. 4.) Refer pt to RD for further nutrition education and weight monitoring upon discharge. 5.) Continue current plan of care.
[2019-06-19 16:47] VITALS: BP 127/76
--- NOTE | 2019-06-19 16:55 | NUR ---
Per Dr. Lamar patient still requiring transfer to higher level of care (I spoke with Dr. Vieira on 06/16/19 and he had told me that patient did not need to be transferred to a higher level of care) for high risk gallbladder surgery. I called [facility] transfer center [phone] to ask about bed availability-was on hold for more than 10 minutes with out being able to speak with anyone or leave a message. I have already spoken with [facility] transfer watkins and [facility], they have no beds available at this time.
--- NOTE | 2019-06-19 18:50 | NUR ---
Patient rounds Patient resting comfortably in bed eating dinner, with family at bedside. No s/s of distress or SOB. Will endorse care to hourly shift RN.
--- NOTE | 2019-06-19 19:30 | NUR ---
Opening Shift Note Assumed care of patient. Patient is awake and alert. No S/S of distress/SOB. Instructed on POC and to call for assist PRN, will continue to monitor for changes Q1hr and PRN. Bed locked in lowest position and bed rails up x2. Call light within reach. Patient communicates with writing on paper. Able to comprehend and understand concepts.
[2019-06-19 21:47] VITALS: BP 140/87
[2019-06-20] MEDS: ONDANSETRON HCL 4 MG/2 ML VIAL IV PRN ×2 (03:43→15:28)
[2019-06-20] MEDS: MORPHINE SULF INJ 2 MG/ML SYRINGE 1ML IV PRN ×5 (03:43→23:30)
[2019-06-20 04:46] VITALS: BP 124/79
[2019-06-20] MEDS: metroNIDAZOLE 500MG/100ML 100 ML IV SCH ×3 (06:17→22:01)
[2019-06-20] MEDS: SODIUM CHLOR 0.9% PF (SALINE LOCK) 10ML VIAL/SYR IV SCH ×3 (06:17→22:02)
--- NOTE | 2019-06-20 07:30 | NUR ---
Opening Shift Note Assumed care of patient, who is alert and oriented x4. No S/S of distress/SOB or pain. IV to right forearm is patent and intact. Able to communicate with patient via pen and paper as well as using a video boiler fireman. Bed is low, locked with 2x side rails up. Call light is within reach. Instructed on POC via balance screwhead polisher and to call for assist PRN, will continue to monitor for changes Q1hr and PRN.
[2019-06-20 07:46] LABS: BUN/Creatinine Ratio 7.5; Calcium 8.1 mg/dL (8.5-10.1); Potassium 4.3 mmol/L (3.5-5.1)
[2019-06-20 08:00] VITALS: BP 127/84
[2019-06-20 09:21] VITALS: BP 127/84
[2019-06-20] MEDS ORDERED: SODIUM CHLORIDE LOCK 10 ML ONE (09:40)
[2019-06-20] MEDS: LEVOFLOXACIN 500MG 100 ML IV SCH (10:00)
[2019-06-20] MEDS: PANTOPRAZOLE 40 MG/10 ML VIAL INJ IV SCH (10:00)
[2019-06-20] MEDS: LISINOPRIL 20 MG TAB PO SCH (10:01)
--- NOTE | 2019-06-20 10:05 | NUR ---
Dr. Lamar at bedside Dr. Lamar and charge nurse, Meliza at bedside. Communicated with patient via [employer] to interpret (ASL) via live video feed. Patient is expressing some concerns regarding diagnostics tests and wanted to know why she was still admitted. MD updated patient on POC and let her know of the findings from the recent diagnostic tests that were performed. She did let the patient know that Dr. Levy performed and EGD and found gastritis. Patient stated she would like more information regarding those findings and we let her know that we would contact Dr. Levy to come and speak with her further regarding those results. Dr. Lamar let the patient know of the pending transfer for [facility] and that case management is working on finding a bed at another acute care facility. Patient nodded understanding. All questions/concerns were answered by Dr. Lamar via [employer].
--- NOTE | 2019-06-20 11:20 | NUR ---
I called [facility] transfer center and spoke with Alana [phone]-she requested that a new transfer packet be faxed. I faxed transfer order/clinical information to [phone].
--- NOTE | 2019-06-20 11:39 | NUR ---
Transfer request/clinical packet faxed to [facility], [facility] ([facility]), [facility], [facility] transfer center and [facility].
--- NOTE | 2019-06-20 12:01 | NUR ---
I received a call from Юлия at [facility] transfer center-provided her with additional clinical information as requested-she is going to fax over transfer back agreement.
--- NOTE | 2019-06-20 12:11 | NUR ---
I called the [facility] Transfer Center [phone] and spoke with Keily regarding the request to transfer to higher level of care. Provided her with additional clinical information as requested, she will present the information to her MD and give me a call back to let me know if they are able to accept this patient.
--- NOTE | 2019-06-20 12:16 | NUR ---
I called Dr. Lamar and provided her with the contact information for [facility] hospitalist personal financial planner [phone] to see if their on-call hospitalist will accept this patient.
--- NOTE | 2019-06-20 12:21 | NUR ---
I called [facility] and spoke with house cleaner Rosaura, she said they have no telemetry beds available and they have 40 patients in their ER waiting for beds.
--- NOTE | 2019-06-20 12:27 | NUR ---
I called [facility] Transfer Center [phone] and spoke with Pasha regarding the request to transfer this patient-provided him with contact information for Dr. Lamar as well as the nurse's station. Faxed transfer order/clinical information to [phone].
--- NOTE | 2019-06-20 12:31 | NUR ---
I called [facility] and spoke with warehouse examiner Allison, she transferred me to Ariel in the transfer center. Per Ariel, she received my packet and will present the information to her MD to let me know if they will be able to accept this patient.
[2019-06-20 13:00] VITALS: BP 120/75
--- NOTE | 2019-06-20 13:05 | NUR ---
Dr. Levy at bedside Communicated with patient via [employer] with a senior sales administrator. He let the patient know of his findings when he performed the EGD that he found some inflammation of the stomach and that he believes her pain is coming from the gallbladder. Patient nodded understanding.
[2019-06-20] MEDS ORDERED: FUROSEMIDE 20 MG/2 ML VIAL IV ONE (13:15)
--- NOTE | 2019-06-20 13:28 | NUR ---
I called [facility] Anesthesiology Crna Caity [phone] to request authorization number for transportation-left message.
--- NOTE | 2019-06-20 14:04 | NUR ---
I received a call from Caity at [facility] [phone]-I updated her on the need to transfer this patient to higher level of care. I made her aware of the facilities I had already reached out to. I let her know that I just received a call from [facility] and they are declining the transfer. I asked her if we could reach out to [facility]-she will speak with her medical office supervisor and give me a call back regarding reaching out to other facilities. She provided me with [facility] authorization number [id number].
--- NOTE | 2019-06-20 14:15 | NUR ---
I called [facility] (spoke with Annalisa) and placed them on will-call pending transfer to higher level of care-auth number [id number] provided to me by Caity at [facility]. I spoke with patient's nurse Megan and updated her on the status of the transfer-I made her aware that [facility] is on will call.
--- NOTE | 2019-06-20 15:12 | NUR ---
I received a call back from [facility] Bottom Precipitator Operator Caity letting me know that I can reach out to [facility]. I faxed transfer order/transfer packet to [facility]. I received a call from [facility] [place] Keily letting me know that they would be faxing us a transfer back agreement.
--- NOTE | 2019-06-20 16:10 | NUR ---
I called [facility] [phone] and left message for data warehouse manager asking for the name/phone number of their surgeon station mechanic helper for me to give to Dr. Lamar.
[2019-06-20 16:50] VITALS: BP 125/76
--- NOTE | 2019-06-20 18:50 | NUR ---
Accepted at [facility] Spoke with Shaina from [facility] and she stated that patient has been accepted to that facility they are just waiting for a bed to become available. She stated she will call when bed becomes available so we can begin the transfer process. Endorsed information to MAGED KERNS
--- NOTE | 2019-06-20 19:30 | NUR ---
Assumed care of patient, awake alert and oriented. Patient is deaf and communicates through sign language and tranlators. Patients is at bedside along with 2 kids. Mother called on the phone and was face timing me letting me know to call her with any updates regarding transfer. Trying to use clinic office coordinator computer. It took 10 minutes before getting anyone on the monitor and was notified that they would call back with a clinic office coordinator when available. For now we will communicate by writing questions and answers down on paper. IV to Right FA will be discontinued and will start a new IV due to swelling and pain per patient .
--- NOTE | 2019-06-20 20:00 | NUR ---
[facility] called me @ 1930 asking if patient still needed to be transferred. Informed them patient was going to be transferred to [facility] just awaiting a bed as I was told during report. Then upon speaking with Charge nurse Myrna, she informed me if [facility] has a bed then she will go there. I called [facility] back to investigate further regarding a bed being available and social worker health services Suman was unable to give me answers and would call me back after he had some answers as to the call I received shortly earlier.Awaiting return call.
--- NOTE | 2019-06-20 21:00 | NUR ---
Called and tried to get a preventive maintenance coordinator once again and explained this was the second call. Awaiting return call.
--- NOTE | 2019-06-20 21:00 | NUR ---
feed in worker Suman called me back but unfortunately did not have any answers on the transfer and to call back tomorrow. Notified patient by paper as well as at bedside. Will endorse to next nurse.
[2019-06-20 22:18] VITALS: BP 140/101
[2019-06-21] VITALS (7 sets, daily range): BP systolic 109–137; BP diastolic 74–98
--- NOTE | 2019-06-21 | NUR ---
Never received a call back for hedis coordinator. Have been getting by with writing everything on paper with patient. Garage Mechanic computer has proven to be more a problem then an assist..
[2019-06-21] MEDS: MORPHINE SULF INJ 2 MG/ML SYRINGE 1ML IV PRN ×2 (03:30→22:40)
[2019-06-21] MEDS: SODIUM CHLOR 0.9% PF (SALINE LOCK) 10ML VIAL/SYR IV SCH ×3 (06:00→22:00)
[2019-06-21 06:26] LABS: Potassium 3.9 mmol/L (3.5-5.1)
[2019-06-21] MEDS: metroNIDAZOLE 500MG/100ML 100 ML IV SCH ×3 (06:30→22:00)
[2019-06-21 06:34] LABS: Albumin 2.7 g/dL (3.4-5.0); Bilirubin, Total 0.5 mg/dL (0.2-1.0); Calcium 8.3 mg/dL (8.5-10.1); Magnesium 1.5 mg/dL (1.6-2.6); Total Protein 5.8 g/dL (6.4-8.2)
--- NOTE | 2019-06-21 07:30 | NUR ---
Opening Shift Note Assumed care of patient, who is alert and oriented x4. No S/S of distress/SOB or pain. IV to the left forearm is patent and intact. Able to communicate with patient via pen and paper as well as using [employer] with a ASL carpet installation specialist. Bed is low, locked with 2x side rails up. Call light is within reach. Instructed on POC via pen and paper. Instructed patient to call for assist PRN, will continue to monitor for changes Q1hr and PRN.
--- NOTE | 2019-06-21 09:09 | NUR ---
Patient Ambulating Patient ambulating in hallway with steady gait. Will continue to monitor.
--- NOTE | 2019-06-21 09:20 | NUR ---
Patient returned to room No distress noted upon return.
--- NOTE | 2019-06-21 09:45 | NUR ---
Dr. Lamar at bedside Dr. Lamar at bedside, communicated with the patient via seismic interpreter using [employer]. Dr. Lamar updated the patient on her ejection fraction of 25% and that she would follow up with the deputy controller (Dr. Whitt) to see if he would like to start her on any other medication. She also advised the patient to follow up with a deputy controller upon discharge from here or where ever she is discharged from. Lastly, she also updated her on the status of her transfer. [facility] has accepted the transfer they are just waiting for an available bed. [facility] is on will call for when a bed becomes available. All of this information was communicated to patient via Q.branchI with spanish interpreter. Patient had no further questions. Will continue to monitor.
[2019-06-21] MEDS: LEVOFLOXACIN 500MG 100 ML IV SCH (09:57)
[2019-06-21] MEDS: PANTOPRAZOLE 40 MG/10 ML VIAL INJ IV SCH (09:57)
[2019-06-21] MEDS: LISINOPRIL 20 MG TAB PO SCH (09:59)
--- NOTE | 2019-06-21 10:00 | NUR ---
Shower Paged and received call back from carole Osuna for patient to shower.
[2019-06-21] MEDS ORDERED: CARVEDILOL 3.125 MG TAB PO ONE (10:45)
[2019-06-21] MEDS ORDERED: FUROSEMIDE 20 MG/2 ML VIAL IV ONE (10:45)
[2019-06-21] MEDS ORDERED: ALBUTEROL SULF 2.5 MG/0.5ML(0.5%) NEB SOLN NEB PRN (10:45)
[2019-06-21] MEDS ORDERED: IPRATROPIUM BROM 0.5 MG/2.5ML INH SOL NEB PRN (10:45)
[2019-06-21] MEDS: MAGNESIUM SULFATE 1GM/100ML 100 ML IV SCH ×2 (12:09→14:29)
--- NOTE | 2019-06-21 13:41 | NUR ---
[facility] Transfer Center Received call from transfer center and they asked for authorization number which this nurse provided to them as well as [facility] case supervisor number. She stated they are currently working on the transfer now and will let me know if they will have a bed available today.
--- NOTE | 2019-06-21 17:15 | NUR ---
Transfer Center Received a phone call from Ariel at the [facility] Transfer center and she asked if we still needed the patient to be transferred for HLOC. I updated her on patient's current status and let her know that we do still need the transfer. She stated she will update her MD's and call back with an update.
[2019-06-21] MEDS: CARVEDILOL 3.125 MG TAB PO SCH (17:45)
--- NOTE | 2019-06-21 21:00 | NUR ---
PT CHECKED FOR PRN TX. PT IS RESTING WITH NO DISTRESS NOTED. TX NOT INDICATED. POX 94% ON ROOM AIR. HR 101 RR 20 BREATH SOUNDS CLEAR.
[2019-06-21] MEDS: ONDANSETRON HCL 4 MG/2 ML VIAL IV PRN (23:00)
[2019-06-22] MEDS: MORPHINE SULF INJ 2 MG/ML SYRINGE 1ML IV PRN ×3 (02:44→16:10)
[2019-06-22 05:00] VITALS: BP 131/55
[2019-06-22] MEDS: SODIUM CHLOR 0.9% PF (SALINE LOCK) 10ML VIAL/SYR IV SCH ×2 (06:00→16:10)
[2019-06-22] MEDS: metroNIDAZOLE 500MG/100ML 100 ML IV SCH ×2 (06:25→13:56)
--- NOTE | 2019-06-22 07:00 | NUR ---
Nothing new in regards to transfer last night. Still awaiting [facility] bed. Patient updated and made aware. Endorsed care to RN
--- NOTE | 2019-06-22 07:15 | NUR ---
Opening Shift Note Assumed care of patient, who is alert and oriented x4. No S/S of distress/SOB or pain. IV to the left forearm is patent and intact. Able to communicate with patient via pen and paper as well as using [employer] with a ASL tattooer. Bed is low, locked with 2x side rails up. Call light is within reach. Instructed on POC via pen and paper. Instructed patient to call for assist PRN, will continue to monitor for changes Q1hr and PRN
[2019-06-22] MEDS: CARVEDILOL 3.125 MG TAB PO SCH ×2 (07:48→18:55)
[2019-06-22 08:37] LABS: Potassium 3.5 mmol/L (3.5-5.1)
[2019-06-22 08:50] LABS: BUN/Creatinine Ratio 7.8; Calcium 8.2 mg/dL (8.5-10.1); Magnesium 1.9 mg/dL (1.6-2.6)
[2019-06-22 09:00] VITALS: BP 126/66
[2019-06-22] MEDS: PANTOPRAZOLE 40 MG/10 ML VIAL INJ IV SCH (09:55)
[2019-06-22] MEDS: LEVOFLOXACIN 500MG 100 ML IV SCH (09:55)
[2019-06-22] MEDS ORDERED: FUROSEMIDE 20 MG/2 ML VIAL IV SCH (10:00)
[2019-06-22] MEDS ORDERED: LISINOPRIL 10 MG TAB PO SCH (10:00)
--- NOTE | 2019-06-22 10:10 | NUR ---
Respiratory note: PT ASSESSED FOR PRN TX. HR 96, RR 18, POX 95% ON RA, BREATH SOUNDS ARE CLEAR. NO SOB OR DISTRESS NOTED. PT WAS NOTIFY TO HAVE RT PAGE.
--- NOTE | 2019-06-22 10:21 | NUR ---
Transfer Patient is expressing frustration on paper regarding transfer. I let the patient know that [facility] was still currently waiting for a bed to become available. She is asking to speak with a "Insulation Manager", this nurse contacted and received a call back from Chichi. Chichi stated that we do not have a business risk analyst and as far as the transfer all we can do is wait for a bed to become available at [facility]. Will relay information to patient.
[2019-06-22] MEDS ORDERED: MAGNESIUM SULFATE 1GM/100ML 100 ML IV ONE (10:30)
[2019-06-22] MEDS ORDERED: POTASSIUM CHL 10 Meq TABLET PO ONE (10:30)
[2019-06-22] MEDS ORDERED: FUROSEMIDE 20 MG/2 ML VIAL IV ONE (10:30)
[2019-06-22] MEDS: ONDANSETRON HCL 4 MG/2 ML VIAL IV PRN ×2 (10:52→16:08)
--- NOTE | 2019-06-22 12:56 | NUR ---
Ana Laura Awad Received call from [facility] outside sales account representative. They will fax over transfer agreement to be signed by yissel beckwith and . Waiting for incoming fax.
[2019-06-22 13:00] VITALS: BP 128/76
--- NOTE | 2019-06-22 13:25 | NUR ---
Received Fax Received fax from [facility]. Paperwork included a Return Agreement that has been signed by both casting house worker Corey Lacey and MD Lamar. Patient Acknowledgement form has also been signed by patient. Both forms have been signed and faxed back to [facility].
--- NOTE | 2019-06-22 16:20 | NUR ---
Notification of Transfer Contact patient's mom Tino and let her know that patient is being transferred to [place]. Patient's room number is 9205 bed 2.
--- NOTE | 2019-06-22 16:43 | NUR ---
Report Called [facility], gave report to SAUMYA Johnson. All questions answered.
[2019-06-22 16:52] VITALS: BP 128/76
[2019-06-22 17:00] VITALS: BP 106/66
--- NOTE | 2019-06-22 17:43 | NUR ---
[facility] Spoke with Sneha at [facility]. Patient to be picked up in 1.5 hours. Will notify family
--- NOTE | 2019-06-22 19:01 | NUR ---
Respiratory note: ASSESSED PT FOR PRN MED NEB AT THIS TIME, PT DENIES SOB AT THIS TIME, NO RESP DISTRESS NOTED, NO TX INDICATED. PULSE OX 98% ON RA, HR 95, RR 18, BILATERAL BS DECREASED. COMMUNICATED WITH PT VIA PEN AND PAPER.
--- NOTE | 2019-06-22 19:10 | NUR ---
Received patient in bed awake and alert waiting for transportation to [facility]. No acute distress noted.
--- NOTE | 2019-06-22 20:11 | NUR ---
Received a call from [facility], message from (SURGEON), patient does not require higher level of care. Charge nurse notified, [facility] transport notified ([place]).
--- NOTE | 2019-06-22 20:20 | NUR ---
Went to patient's room to explain that the transfer was cancelled per surgeon Dr. Aguilar, through a video call made by patient with her mother nurse explain that [facility] is not accepting the patient after surgeon reviewed her case.
[2019-06-22] MEDS ORDERED: MORPHINE SULFATE 4 MG/ML SYR/VIAL IV PRN (20:45)
--- NOTE | 2019-06-22 21:07 | NUR ---
Patient's mother Dennyse called saying patient's pain medicine is not enough, called Hospitalist and received order for Morphine 4mg for severe pain. Patient notified.
[2019-06-22] MEDS ORDERED: MORPHINE SULF INJ 2 MG/ML SYRINGE 1ML IV PRN (21:15)
--- NOTE | 2019-06-22 21:44 | NUR ---
Called [facility] transfer center, spoke with Delores transfer nurse, she said they did not cancel the patient's transfer. Called [facility] and arranged for transfer with ETA 60 minutes. Informed patient through written message that she is transferring in 1 hour.
--- NOTE | 2019-06-22 23:43 | NUR ---
Patient left via gurney by [facility] ambulance to [facility] in stable condition.
--- NOTE | 2019-06-22 23:46 | NUR ---
Called patient's mother Dennyse and notified her that patient was transferred to [facility].
--- NOTE | 2019-06-23 00:11 | NUR ---
Called [facility] spoke with Patricia KERNS and notified her that Metronidazole was not yet given and Morphine 2mg IV given prior to transferring out.
[2019-06-23] MEDS ORDERED: FUROSEMIDE 40 MG/4 ML VIAL IV SCH (10:00)
== END 2019-06-22 23:46 | disposition short-term general hospital (02) ==
LOC: ER 08:22 → CENTRAL 08:23 → TELE-CENTR 06-14 17:03
PROVIDERS: ADMIT Nurse Practitioner Acute Care; ATTEND Internal Medicine
PROC: 0DB68ZX Excision of Stomach, Via Natural or Artificial Opening Endoscopic, Diagnostic (ICD-10-PCS; principal; 2019-06-18 12:14)
DX: K80.00 Calculus of gallbladder with acute cholecystitis without obstruction (principal); I50.23 Acute on chronic systolic (congestive) heart failure; I42.0 Dilated cardiomyopathy; J45.901 Unspecified asthma with (acute) exacerbation; E88.09 Other disorders of plasma-protein metabolism, not elsewhere classified; Q61.3 Polycystic kidney, unspecified; Q21.1 Atrial septal defect; K29.70 Gastritis, unspecified, without bleeding; I13.0 Hypertensive heart and chronic kidney disease with heart failure and stage 1 through stage 4 chronic kidney disease, or unspecified chronic kidney disease; N18.3 Chronic kidney disease, stage 3 (moderate); K76.89 Other specified diseases of liver; R10.9 Unspecified abdominal pain; E66.9 Obesity, unspecified; D64.9 Anemia, unspecified; N83.209 Unspecified ovarian cyst, unspecified side; E87.6 Hypokalemia; K82.8 Other specified diseases of gallbladder; Z75.1 Person awaiting admission to adequate facility elsewhere; Z68.32 Body mass index [BMI] 32.0-32.9, adult
CPT/HCPCS: 36415; 71045; 71046; 74176; 74181; 76705; 76856; 78226; 80048; 80053; 80307; 81001; 81025; 82040; 82150; 82570; 82962; 83690; 83735; 83880; 84100; 84156; 84478; 85025; 85610; 85730; 87086; 93306; 93970; 94640; 96361; 96374; 96375; C9113; G0378; J1956; J2250; J2405; J3480; J3490; J7131

== ENCOUNTER 2020-11-01 17:51 | Inpatient (IN) | payer MEDICAID ==
[~2020-11-01] VITALS: Ht 167.6 cm; Wt 76.6 kg
[~2020-11-01 17:51] MED LIST: ALBUAER3 IN
[2020-11-01 18:48] LABS: Basophils # (auto) 0.1 10 ^3/uL (0-0.2); Eosinophils # (auto) 0 10 ^3/uL (0-0.8); Hemoglobin 11.2 g/dL (12.2-16.2); Monocytes # (auto) 0.5 10 ^3/uL (0-1.3); Nucleated Red Blood Cells % 0.2 %
[2020-11-01 18:50] LABS: Basophils % (auto) 1.1 % (0.0-2.0); Eosinophils % (auto) 0.9 % (0.0-7.0); Hematocrit 36.1 % (36.0-46.0); Lymphocytes # (auto) 1.6 10 ^3/uL (0.4-5.4); Lymphocytes % (auto) 35.1 % (10.0-50.0); Mean Corpuscular Hemoglobin 21.7 pg (28.0-32.0); Mean Corpuscular Hgb Conc. 31.1 g/dL (32.0-36.0); Mean Corpuscular Volume 69.8 fL (80.0-100.0); Monocytes % (auto) 10.7 % (0.0-12.0); Neutrophils # (auto) 2.4 10 ^3/uL (1.6-8.6); Neutrophils % (auto) 52.2 % (37.0-80.0); Platelet Count (auto) 248 10^3/uL (140-450); Red Blood Cells 5.17 10^6/uL (4.0-5.20); White Blood Cell 4.5 10^3/uL (4.4-10.8)
[2020-11-01 18:51] LABS: Red Cell Distribution Width 22.7 % (11.8-14.3)
[2020-11-01 19:01] LABS: Albumin 2.5 g/dL (3.4-5.0); BUN/Creatinine Ratio 10.7; Calcium 7.6 mg/dL (8.5-10.1); Potassium 3.6 mmol/L (3.5-5.1)
[2020-11-01 19:06] LABS: Total Protein 6.3 g/dL (6.4-8.2)
[2020-11-01 19:07] LABS: Urine Bacteria FEW /hpf (None Seen); Urine Blood TRACE /uL (Negative); Urine Specific Gravity 1.007 (1.001-1.035); Urine WBC 1 /hpf (0 - 5)
[2020-11-01] MEDS ORDERED: ASPirin 325 MG TAB PO ONE (20:00)
[2020-11-01] MEDS ORDERED: MORPHINE SULF INJ 2 MG/ML SYRINGE 1ML IV ONE (20:00)
[2020-11-01] MEDS ORDERED: ONDANSETRON HCL 4 MG/2 ML VIAL IV ONE (20:00)
[2020-11-01] MEDS ORDERED: FUROSEMIDE 40 MG/4 ML VIAL IV ONE (20:15)
[2020-11-01] MEDS ORDERED: ASPirin 81 mg TAB PO ONE (20:15)
[2020-11-01] MEDS ORDERED: ONDANSETRON HCL 4 MG/2 ML VIAL ONE (23:23)
[2020-11-01] MEDS ORDERED: MORPHINE SULF INJ 2 MG/ML SYRINGE 1ML ONE (23:23)
[2020-11-02] MEDS ORDERED: ONDANSETRON HCL 4 MG/2 ML VIAL IV ONE
[2020-11-02] MEDS ORDERED: MORPHINE SULF INJ 2 MG/ML SYRINGE 1ML IV ONE
[2020-11-02] MEDS ORDERED: ONDANSETRON HCL 4 MG/2 ML VIAL IV PRN (02:45)
[2020-11-02] MEDS ORDERED: NITROGLYCERIN 0.4 MG SL TAB SL PRN (02:45)
[2020-11-02] MEDS ORDERED: MORPHINE SULF INJ 2 MG/ML SYRINGE 1ML IV PRN (02:45)
[2020-11-02] MEDS: MORPHINE SULF INJ 2 MG/ML SYRINGE 1ML IV PRN (07:24)
[2020-11-02] MEDS: ENOXAPARIN SOD 40 MG/0.4 ML SYRINGE SC SCH ×2 (10:00→10:04)
[2020-11-02] MEDS: FUROSEMIDE 40 MG/4 ML VIAL IV SCH ×2 (10:03→22:20)
[2020-11-02] MEDS: ATORVASTATIN 20 MG TAB PO SCH (10:03)
[2020-11-02] MEDS: METOPROLOL TARTRATE 25 MG TAB PO SCH (10:03)
[2020-11-02] MEDS: BENAZEPRIL HCL 10 MG TAB PO SCH ×2 (10:03→22:20)
[2020-11-02] MEDS: PANTOPRAZOLE 40 MG TAB PO SCH (10:04)
[2020-11-02] MEDS ORDERED: POTASSIUM CHL 20 Meq TABLET PO ONE (14:00)
[2020-11-02] MEDS ORDERED: METO25TA93 PO (14:04)
[2020-11-02] MEDS ORDERED: PANT40T PO (14:04)
[2020-11-02] MEDS ORDERED: BENA5TAB5 PO (14:04)
[2020-11-02] MEDS ORDERED: FURO40TA4 PO (14:04)
[2020-11-02] MEDS ORDERED: POTA10TA32 PO (14:13)
[2020-11-02 15:28] LABS: Anion Gap 9 (5-15); BUN/Creatinine Ratio 12.1; Blood Urea Nitrogen 17 mg/dL (7-18); Calcium 7.8 mg/dL (8.5-10.1); Carbon Dioxide 26 mmol/L (21-32); Chloride 107 mmol/L (98-107); GFR African American 56 mL/min; GFR Non-African American 46 mL/min; Glucose 83 mg/dL (74-106); Potassium 3.8 mmol/L (3.5-5.1); Sodium 142 mmol/L (136-145)
[2020-11-02 15:45] LABS: Cholesterol 120 mg/dL (< 200)
[2020-11-02 15:47] LABS: HDL Cholesterol 28 mg/dL (40-59); LDL Cholesterol 86 mg/dL (< 100); Triglycerides 59 mg/dL (< 150)
[2020-11-02 17:00] VITALS: BP 104/71
[2020-11-02] MEDS: POTASSIUM CHL 20 Meq TABLET PO SCH (22:20)
[2020-11-02 22:47] VITALS: BP 124/81
[2020-11-03] MEDS: MORPHINE SULF INJ 2 MG/ML SYRINGE 1ML IV PRN (00:02)
[2020-11-03 05:22] VITALS: BP 119/73
[2020-11-03 08:00] VITALS: BP 114/89
[2020-11-03 09:00] VITALS: BP 114/89
[2020-11-03] MEDS: FUROSEMIDE 40 MG/4 ML VIAL IV SCH (09:26)
[2020-11-03] MEDS: ATORVASTATIN 20 MG TAB PO SCH (09:26)
[2020-11-03] MEDS: POTASSIUM CHL 20 Meq TABLET PO SCH (09:26)
[2020-11-03] MEDS: METOPROLOL TARTRATE 25 MG TAB PO SCH (09:27)
[2020-11-03] MEDS: PANTOPRAZOLE 40 MG TAB PO SCH (09:28)
[2020-11-03] MEDS: BENAZEPRIL HCL 10 MG TAB PO SCH (09:28)
[2020-11-03] MEDS: ENOXAPARIN SOD 40 MG/0.4 ML SYRINGE SC SCH (09:30)
[2020-11-03 13:15] VITALS: BP 111/59
== END 2020-11-03 14:50 | disposition home or self-care (01) | DRG 190 ==
LOC: ER 18:03 → TELE 11-02 02:42 → TELE-WESTW 11-02 12:50
PROVIDERS: ADMIT Hospitalist; ATTEND Hospitalist
DX: R07.89 Other chest pain (principal); I21.A1 Myocardial infarction type 2; I42.9 Cardiomyopathy, unspecified; E44.0 Moderate protein-calorie malnutrition; I50.9 Heart failure, unspecified; I13.0 Hypertensive heart and chronic kidney disease with heart failure and stage 1 through stage 4 chronic kidney disease, or unspecified chronic kidney disease; Q61.3 Polycystic kidney, unspecified; Z20.822 Contact with and (suspected) exposure to COVID-19; J45.909 Unspecified asthma, uncomplicated; H91.3 Deaf nonspeaking, not elsewhere classified; N18.9 Chronic kidney disease, unspecified; Z90.49 Acquired absence of other specified parts of digestive tract; Z79.899 Other long term (current) drug therapy
CPT/HCPCS: 36415; 71045; 80048; 80053; 80061; 81001; 81025; 83880; 84484; 85025; 87426; 93005; 93306; 93970; 96374; 96375; 96376; G0378; J2405